=== PATIENT | female | born 1980 | race Asian ===

== ENCOUNTER 2017-05-17 16:22 | Emergency (ER) | payer OTHER ==
[2017-05-17 16:31] VITALS: BP 105/62
--- NOTE | 2017-05-17 17:07 | UC ---
Jani Contreras Rebecca, scribed for Jaida Panda MD on 05/17/17 at 1637 . Abdominal Pain Female HPI - HPI Summary HPI Summary: Pt is a 37 y/o F who presents to [facility] c/o LLQ abd pain. Pain began 5 months ago s/p D&C after miscarriage at 3 months gestation. Pt had procedure in [place] and has not seen doctor since coming to [place]. Pt now lives in [place] x 1 year. Pain typically occurs between her periods. Sx worsened 2 days ago after her daughter accidentally hit the area. Pain has been intermittent since onset and characterized as stabbing. Pain is currently not present. Has not taken any medication for the pain. Sx aggravated by touch, alleviated by nothing. Denies vaginal bleeding, fever, chills, N/V/D, dysuria, back pain and vaginal discharge or pruritis. LNMP 05/02/2017. Pt with h/o ovarian cysts. Pt would like to try getting again but wanted to be "checked" first. History obtained from the pt's who is acting as a radio script writer, which the pt confirmed was alright. No PMHx ovarian cyst. Recently moved to the area from [place]. No current medications - History of Current Complaint Chief Complaint: UCAbdominalPain Stated Complaint: ABDOMINAL PAIN Time Seen by Provider: 05/17/17 16:28 Hx Obtained From: Patient, Family/Field Merchandiser - PT's assisted with interpretation as pt primary language is gabonese Hx Last Menstrual Period: 05/02/17 ?: No Onset/Duration: Lasting Weeks - 5 months, intermittent, Still Present - denies much pain at present, Worse Since - 2 days ago -now resolved Timing: Intermittent Episodes Lasting: Severity Initially: Moderate - 4/10 Severity Currently: None Pain Intensity: 0 Pain Scale Used: 0-10 Numeric Location: Discrete At: LLQ Radiates: No Character: Sharp Aggravating Factor(s): Other: - Touch Alleviating Factor(s): Nothing Associated Signs and Symptoms: Positive: Other: - Intermittent vaginal odor. Negative: Back Pain, Vaginal Bleeding, Vaginal Discharge, Nausea, Vomiting, Diarrhea Allergies/Adverse Reactions: Allergies Allergy/AdvReac Type Severity Reaction Status Date / Time No Known Allergies Allergy Verified 05/17/17 16:31 Home Medications: Home Medications NK [No Home Medications Reported] 05/17/17 [History Confirmed 05/17/17] PMH/Surg Hx/FS Hx/Imm Hx - Additional Past Medical History Additional PMH: No PMHx ovarian cyst No PMHx DM Previously Healthy: Yes - Surgical History Surgical History: Yes Surgery Procedure, Year, and Place: D&C. - Family History Known Family History: Positive: Hypertension, Diabetes - Social History Occupation: Employed Full-time - radio frequency design engineer Alcohol Use: None Substance Use Type: None Smoking Status (MU): Never Smoked Tobacco Review of Systems Constitutional: Negative Skin: Negative Eyes: Negative ENT: Negative Respiratory: Negative Cardiovascular: Negative Gastrointestinal: Abdominal Pain - LLQ abdominal pain Genitourinary: Other - Intermittent vaginal odor - none currently Motor: Negative Neurovascular: Negative Musculoskeletal: Negative Neurological: Negative Psychological: Negative All Other Systems Reviewed And Are Negative: Yes - Comments Additional Review of Systems Comments: NEGATIVE: Vaginal bleeding discharge or pruritis, fever, chills, N/V/D, dysuria , and back pain. Physical Exam Triage Information Reviewed: Yes Appearance: Well-Appearing, No Pain Distress, Well-Nourished Vital Signs: Initial Vital Signs Temp 98.6 F 05/17/17 16:26 Pulse 82 05/17/17 16:26 Resp 12 05/17/17 16:26 BP 105/62 05/17/17 16:26 Pulse Ox 100 05/17/17 16:26 Vital Signs Reviewed: Yes Eye Exam: Normal ENT Exam: Normal ENT: Positive: Normal ENT inspection, Hearing grossly normal, Pharynx normal, TMs normal Dental Exam: Normal Neck exam: Normal Neck: Positive: Supple, Nontender, No Lymphadenopathy Respiratory Exam: Normal Respiratory: Positive: Chest non-tender, Lungs clear, Normal breath sounds Cardiovascular Exam: Normal Cardiovascular: Positive: RRR, No Murmur Abdominal Exam: Normal Abdomen Description: Positive: No Organomegaly, Soft. Negative: Nontender - minimal discomfort with deep palpation LLQ - soft no guarding, no rebound +BS no distension Bowel Sounds: Positive: Present Musculoskeletal Exam: Normal Musculoskeletal: Positive: Strength Intact, ROM Intact Neurological Exam: Normal Neurological: Positive: Alert, Muscle Tone Normal Psychological Exam: Normal Psychological: Positive: Normal Response To Family Re-Evaluation - Re-Evaluation First Eval Re-Evaluation Time: 17:23 Comment: Reviewed urine with pt. Spoke with pt and at length - pt is non toxic, stable vital signs, on concerning exam without pain. Offered pt further evaluation in ED tonight, vs referral to [facility]. After discussoin, decided will go home. will go to ED if pain returns. Comfortable and in agreement with plan Abd Pain Female Course/Dx - Course Course Of Treatment: Pt presents with 5 months,intermittnet LLQ pain - occurs 2 weeks post menses. No analgesia. no current pain. non concering exam with stable VS. Suspect ovarian cyst. Patient medications reviewed this visit. - Differential Dx/Diagnosis Provider Diagnoses: likely ovarian cysts Discharge - Discharge Plan Condition: Stable Disposition: HOME Patient Education Materials: Ovarian Cyst (ED) Print Language: JORDANIAN Referrals: Meaghan Ham MD [Medical Doctor] - Additional Instructions: -Stay well hydrated. Drink plenty of non-alcoholic, non-caffinated beverages -Okay to alternate ibuprofen (advil, motrin) and tylenol every 3 hours for pain. Take with food -Contact they gynecology doctor to schedule a follow-up appointment. -If you have increased pain, fever, chills, vomiting,or ANY other concerns you should go immediately to the hospital for further testing and evaluation The documentation as recorded by the Jain bucio Rebecca accurately reflects the service I personally performed and the decisions made by me, Jaida Panda MD.
== END 2017-05-17 17:38 | disposition home or self-care (01) ==
LOC: UCEAST 16:22
DX: R10.32 Left lower quadrant pain (principal)
CPT/HCPCS: 81003; 84702; 99201; G0463

== ENCOUNTER 2017-06-15 11:42 | Emergency (ER) | payer OTHER ==
[2017-06-15] MEDS ORDERED: NS 0.9% 1000 ML* 1,000 ML IV ONE (12:31)
[2017-06-15 12:59] LABS: Hematocrit 34 % (35-47); Hemoglobin 11.2 g/dl (12.0-16.0); Mean Corpuscular HGB Conc 33 g/dl (31-36); Mean Corpuscular Hemoglobin 29 pg (27-31); Mean Corpuscular Volume 88 fL (80-97); Mean Platelet Volume 8 um3 (7.4-10.4); Red Blood Count 3.83 10^6/ul (4.0-5.4); Red Cell Distribution Width 13 % (10.5-15); White Blood Count 4.5 10^3/ul (3.5-10.8)
[2017-06-15 13:10] LABS: ALT 8 U/L (7-52); AST 14 U/L (13-39); Alkaline Phosphatase 37 U/L (34-104); Anion Gap 4 mmol/L (2-11); BUN/Creatinine Ratio 17.2 (8-20); Blood Urea Nitrogen 11 mg/dL (6-24); C Reactive Protein < 1.00 mg/L (< 5.00); CO2 Carbon Dioxide 28 mmol/L (22-32); Calcium 8.9 mg/dL (8.6-10.3); Chloride 104 mmol/L (101-111); EGFR African American 132.9 (>60); EGFR Non-African American 103.3 (>60); Globulin 2.8 g/dL (2-4); Glucose 98 mg/dL (70-100); Lipase 53 U/L (11.0-82.0); Potassium 3.6 mmol/L (3.5-5.0); Sodium 136 mmol/L (133-145); Total Protein 6.8 g/dL (6.4-8.9)
--- NOTE | 2017-06-15 13:52 | RAD ---
HISTORY: Left adnexal pain COMPARISONS: None TECHNIQUE: Multiple transverse and longitudinal ultrasound images were obtained of the pelvis using grayscale, color Doppler, and spectral Doppler imaging using the endovaginal transducer. FINDINGS: UTERUS: The uterus measures 8.1 x 4.2 x 5.8 cm. The uterus is normal in shape, size, contour, and echotexture. ENDOMETRIUM: The endometrial stripe is smooth. The endometrium measures 0.9 cm in thickness. There is a small amount of fluid within the endocervical canal. CUL-DE-SAC: There is no free fluid within the cul-de-sac. RIGHT OVARY: The right ovary measures 3.3 x 2.3 x 2.5 cm. There is a 2.4 x 1.5 x 1.8 cm simple right ovarian cyst. Normal arterial and venous waveforms are identifiable within the ovary on spectral Doppler imaging. LEFT OVARY: The left ovary measures 2.2 x 1.6 x 2.2 cm. Normal arterial and venous waveforms are identifiable within the ovary on spectral Doppler imaging. BLADDER: The bladder is not well visualized. OTHER: None IMPRESSION: 1. 2.4 CENTIMETER SIMPLE RIGHT OVARIAN CYST. 2. SMALL AMOUNT OF FLUID WITHIN THE ENDOCERVICAL CANAL. THIS MAY BE PHYSIOLOGIC WITHIN A REPRODUCTIVE AGE FEMALE. 3. NO SONOGRAPHIC FEATURES OF TORSION. PLEASE NOTE THAT PARTIAL OR INTERMITTENT TORSION MAY BE SONOGRAPHICALLY NORMAL.
[2017-06-15 14:48] VITALS: BP 100/73
--- NOTE | 2017-06-15 15:58 | ED ---
Jose Contreras Alfonso, scribed for Talha Trammell MD on 06/15/17 at 1259 . Abdominal Pain/Female - HPI Summary HPI Summary: This patient is a 37 year old F presenting to [facility] accompanied by and child with a chief complaint of LLQ abdominal pain since 6 months ago. The pain is intermittently present for 5 days every month and has been constant since yesterday. The patient rates the pain 6/10 in severity. Symptoms aggravated by palpation. Symptoms alleviated by nothing. Patient denies fever, chills, N/V, and urinary symptoms. Patient diagnosed with ovarian cyst approximately one month ago. - History of Current Complaint Chief Complaint: EDAbdPain Stated Complaint: LOWER ABD PAIN Time Seen by Provider: 06/15/17 12:34 Hx Obtained From: Patient Hx Last Menstrual Period: 05/02/17 Onset/Duration: Sudden Onset, Lasting Weeks - 6 months, Worse Since - yesterday Timing: Intermittent Episode Lasting - approx. 5 days of the month Severity Initially: Moderate Severity Currently: Moderate Pain Intensity: 6 Pain Scale Used: 0-10 Numeric Location: Discrete At: LLQ Aggravating Factor(s): Other: - Palpation Alleviating Factor(s): Nothing Associated Signs and Symptoms: Negative: Fever, Urinary Symptoms, Nausea, Vomiting Allergies/Adverse Reactions: Allergies Allergy/AdvReac Type Severity Reaction Status Date / Time No Known Allergies Allergy Verified 06/15/17 12:43 PMH/Surg Hx/FS Hx/Imm Hx Sensory History: Denies: Hx Deafness Opthamlomology History: Denies: Hx Legally Blind - Surgical History Surgery Procedure, Year, and Place: D&C. Infectious Disease History: No Infectious Disease History: Denies: Traveled Outside the [place] in Last 30 Days - Family History Known Family History: Positive: Hypertension, Diabetes - Social History Alcohol Use: None Substance Use Type: Reports: None Smoking Status (MU): Never Smoked Tobacco Review of Systems Negative: Fever, Chills Positive: Abdominal Pain. Negative: Vomiting, Nausea Positive: no symptoms reported All Other Systems Reviewed And Are Negative: Yes Physical Exam Triage Information Reviewed: Yes Vital Signs On Initial Exam: Initial Vitals Temp Pulse Resp BP Pulse Ox 97.9 F 77 20 97/62 99 06/15/17 11:49 06/15/17 11:49 06/15/17 11:49 06/15/17 11:49 06/15/17 11:49 Vital Signs Reviewed: Yes Skin: Positive: Warm, Skin Color Reflects Adequate Perfusion, Dry Head/Face: Positive: Normal Head/Face Inspection Eyes: Positive: Normal ENT: Positive: Normal ENT inspection Neck: Positive: Supple, Nontender Respiratory/Lung Sounds: Positive: Clear to Auscultation, Breath Sounds Present Cardiovascular: Positive: RRR Abdomen Description: Positive: Soft, Other: - Left adnexal tenderness Bowel Sounds: Positive: Present Musculoskeletal: Positive: Normal Neurological: Positive: Normal, Sensory/Motor Intact, Alert, Oriented to Person Place, Time, CN Intact II-III Psychiatric: Positive: Affect/Mood Appropriate - [place] Coma Scale Coma Scale Total: 15 Diagnostics - Vital Signs Vital Signs Temp Pulse Resp BP Pulse Ox 06/15/17 12:30 71 91/63 99 06/15/17 12:14 97.9 F 77 20 97/62 99 06/15/17 12:11 70 98 06/15/17 12:09 97/63 06/15/17 11:49 97.9 F 77 20 97/62 99 - Laboratory Lab Results: Lab Results 06/15/17 06/15/17 06/15/17 Range/Units 12:37 12:37 12:37 WBC 4.5 (3.5-10.8) 10^3/ul RBC 3.83 L (4.0-5.4) 10^6/ul Hgb 11.2 L (12.0-16.0) g/dl Hct 34 L (35-47) % MCV 88 (80-97) fL MCH 29 (27-31) pg MCHC 33 (31-36) g/dl RDW 13 (10.5-15) % Plt Count 180 (150-450) 10^3/ul MPV 8 (7.4-10.4) um3 Neut % (Auto) 47.2 (38-83) % Lymph % (Auto) 38.4 (25-47) % [place] % (Auto) 8.0 (1-9) % Eos % (Auto) 5.5 (0-6) % Baso % (Auto) 0.9 (0-2) % Absolute Neuts (auto) 2.1 (1.5-7.7) 10^3/ul Absolute Lymphs (auto) 1.7 (1.0-4.8) 10^3/ul Absolute Monos (auto) 0.4 (0-0.8) 10^3/ul Absolute Eos (auto) 0.2 (0-0.6) 10^3/ul Absolute Basos (auto) 0 (0-0.2) 10^3/ul Absolute Nucleated RBC 0 10^3/ul Nucleated RBC % 0 Sodium 136 (133-145) mmol/L Potassium 3.6 (3.5-5.0) mmol/L Chloride 104 (101-111) mmol/L Carbon Dioxide 28 (22-32) mmol/L Anion Gap 4 (2-11) mmol/L BUN 11 (6-24) mg/dL Creatinine 0.64 (0.51-0.95) mg/dL Est GFR ( Amer) 132.9 (>60) Est GFR (Non-Af Amer) 103.3 (>60) BUN/Creatinine Ratio 17.2 (8-20) Glucose 98 (70-100) mg/dL Lactic Acid 0.8 (0.5-2.0) mmol/L Calcium 8.9 (8.6-10.3) mg/dL Total Bilirubin 0.50 (0.2-1.0) mg/dL AST 14 (13-39) U/L ALT 8 (7-52) U/L Alkaline Phosphatase 37 (34-104) U/L C-Reactive Protein < 1.00 (< 5.00) mg/L Total Protein 6.8 (6.4-8.9) g/dL Albumin 4.0 (3.2-5.2) g/dL Globulin 2.8 (2-4) g/dL Albumin/Globulin Ratio 1.4 (1-3) Lipase 53 (11.0-82.0) U/L Beta HCG, Quant < 0.60 mIU/mL Result Diagrams: 06/15/17 12:37 06/15/17 12:37 Lab Statement: Any lab studies that have been ordered have been reviewed, and results considered in the medical decision making process. - Additional Comments Diagnostic Additional Comments: US TRANSVAGINAL reveals, per radiologist, 1. 2.4 CENTIMETER SIMPLE RIGHT OVARIAN CYST. 2. SMALL AMOUNT OF FLUID WITHIN THE ENDOCERVICAL CANAL. THIS MAY BE PHYSIOLOGIC WITHIN A REPRODUCTIVE AGE FEMALE. 3. NO SONOGRAPHIC FEATURES OF TORSION. PLEASE NOTE THAT PARTIAL OR INTERMITTENT TORSION MAY BE SONOGRAPHICALLY NORMAL. ED physician has reviewed this radiology report and agrees. Re-Evaluation - Re-Evaluation First Eval Re-Evaluation Time: 14:24 Comment: Reviewed results with patient. Abdominal Pain Fem Course/Dx - Course Course Of Treatment: Ms. Flood presented with an acute episodes of a left adnexal pain she has been dealing with for several months. She was mildly tender to palpation and her W/U was negative here. Dr. Ham will follow her up in the office. - Diagnoses Provider Diagnoses: Pelvic pain - Provider Notifications Discussed Care Of Patient With: Meaghan Ham Time Discussed With Above Provider: 14:40 Instructed by Provider To: Other - Consulted Dr. Ham (OBGYN) who recommends out patient follow up. Discharge - Discharge Plan Condition: Stable Disposition: HOME Patient Education Materials: Pelvic Pain in Women (ED) Print Language: FRENCH Referrals: Meaghan Ham MD [Medical Doctor] - 2 Weeks (FOLLOW UP WITH DR. HAM (OBGYN) WITHIN TWO WEEKS.) The documentation as recorded by the Jose bucio Alfonso accurately reflects the service I personally performed and the decisions made by me, Talha Trammell MD.
== END 2017-06-15 14:51 | disposition home or self-care (01) ==
LOC: ED 11:42
DX: R10.2 Pelvic and perineal pain (principal)
CPT/HCPCS: 36415; 76830; 80053; 83605; 83690; 84702; 85025; 86140; 87040; 96360; 99282